=== PATIENT | male | born 1945 | race Caucasian/White ===

== ENCOUNTER 2024-10-12 13:04 | Emergency (ER) | payer MEDICARE, SELFPAY ==
[2024-10-12 13:06] VITALS: BP 151/80
[2024-10-12 13:33] LABS: Hematocrit 40.8 % (39.0-52.0); Hemoglobin 13.7 g/dL (13.0-18.0); Mean Corp Hgb Conc. 33.6 g/dL (33.0-37.0); Mean Corpuscular Volume 89.9 fL (80.0-94.0); Nucleated Red Blood Cells % 0 % (-); Platelet Count 177 10^3/uL (130-400); Red Cell Dist. Width 12.1 % (11.5-14.5)
[2024-10-12 14:02] LABS: ALT (SGPT) 17 U/L (0-50); AST (SGOT) 22 U/L (17-59); Albumin 4.0 g/dl (3.5-5.0); Alkaline Phosphatase 45 U/L (38-126); Blood Urea Nitrogen 22 mg/dl (9-20); Calcium 8.9 mg/dl (8.4-10.2); Carbon Dioxide 23 mmol/L (22-30); Chloride 105 mmol/L (98-107); Glucose 97 mg/dl (70-99); Potassium 4.6 mmol/L (3.5-5.1); Sodium 134 mmol/L (135-145); Total Protein 6.6 g/dl (6.3-8.2); eGFR > 60.00
--- NOTE | 2024-10-12 14:23 | ED.GENMED ---
History of Present Illness
General
Chief Complaint: Generalized Pain
Source: patient and family (daughters)
Exam Limitations: none
Time Seen by Provider: 10/12/24 14:07
Nursing documentation reviewed up to this point in time: agreed with
History of Present Illness
History of Present Illness:
79-year-old male with history as noted including history of DVT on Eliquis who presents to the emergency department with his daughters for evaluation of myalgias. Of note patient had carpal tunnel surgery on his right hand by Dr. Soto on Tuesday.
He says that he has been taking Tylenol 3 for pain control since. He unfortunately since the surgery has developed severe myalgias and arthralgias�he says pains across his entire body. He says that his achiness is severe to the point that he
could not even get out of the chair today which prompted him to finally come to the ER. He has no other specific complaints�he has not had headache, URI symptoms, fever, cough, chest pain, shortness of breath, abdominal pain, nausea, vomiting,
diarrhea. He has not had any urinary symptoms, hematuria. He does note that he is an avid car parker and tends to work outside a lot and has pulled multiple ticks off of him and his daughter is concerned that perhaps symptoms could be from Lyme's
disease.
Review of Systems
Review of Systems
Constitutional: Reports fatigue; Denies fever or chills
EENT: Denies sore throat or runny nose
Respiratory: Denies cough or trouble breathing
Cardiac: Denies chest pain or palpitations
ABD/GI: Denies abdominal pain, nausea, vomiting or diarrhea
: Denies dysuria, frequency, flank pain or bleeding
Musculoskeletal: Reports joint pain and muscle pain
Neurological: Denies dizzy or headache
Phy Exam
Physical Exam
Physical Exam:
General: Awake, alert, oriented x3; no acute distress
Head: Normocephalic, atraumatic
Eyes: Conjunctiva normal, EOMI, pupils equal round and reactive to light bilaterally
Throat: Airway intact, handling secretions
Neck: Trachea midline, supple without meningismus
Lungs: Clear to auscultation bilaterally, no wheezing, rales, rhonchi
Heart: Regular rate and rhythm, no murmurs, gallops, or rubs
Abd: Soft, non distended, nontender
Neuro: No gross deficits
Skin: no rash noted on skin inspection
Extremities: Patient has linear surgical incision on the ventral aspect of the right wrist with sutures in place�incision appears clean, dry, no surrounding erythema or drainage although there is some surrounding postoperative bruising and mild
swelling; he has no joint swelling in the rest of his extremities, no edema in the rest of extremities, good pulses throughout his extremities
Scores
Heart Failure Risk
Heart Failure Risk Score: Not Applicable
Heart Score for Chest Pain Patients
STEMI patient?: Not applicable
Withdrawal Assessment of Alcohol
Withdrawal Assessment Completed?: Not applicable
Course
Orders/Labs/Results
Orders:
Orders
10/12/24 13:18
Complete Blood Count/With Diff Urgent
Comprehensive Metabolic Panel Urgent
Lyme PCR, DNA [S] Urgent
10/12/24 14:22
Electrocardiogram (*1) Urgent
Reason for Study: Fatigue / Weakness
EKG- Treatment ONCE
Urinalysis Reflex To Culture Urgent
10/12/24 14:28
0.9% Sodium Chloride 1000 ml [Nss] 1,000 ml IV BOLUS
10/12/24 14:32
COVID-19 Antigen Urgent
Source: Nasal Swab
CPK [Creatine Phosphokinase] Urgent
CRP [C-Reactive Protein] Urgent
ESR [Erythrocyte Sed Rate] Urgent
Magnesium Urgent
TSH Reflex To Free T4 Urgent
Troponin I Urgent
10/12/24 15:44
Prednisone [Deltasone] 50 mg PO NOW STA
Abnormal Lab Results
10/12/24 10/12/24
13:18 14:32
RBC 4.54 L 10^6/uL
(4.70-6.10)
Absolute Neuts (auto) 8.3 H 10^3/uL
(1.4-6.5)
Absolute Monos (auto) 1.2 H 10^3/uL
(0.1-0.6)
Neutrophils % 76.5 H %
(42.2-75.2)
Lymphocytes % 11.7 L %
(20.5-51.1)
Monocytes % 10.6 H %
(1.7-9.3)
ESR 26 H mm/hour
(0-20)
Sodium 134 L mmol/L
(135-145)
BUN 22 H mg/dl
(9-20)
Total Bilirubin 1.5 H mg/dl
(0.2-1.3)
C-Reactive Protein 58.90 H mg/L
(0.0-10.00)
10/12/24 13:18
10/12/24 13:18
Vital Signs
Initial and Last Documented VS:
Initial Vital Signs
Temp Pulse Resp BP Pulse Ox
36.8 C 79 18 151/80 99
10/12/24 13:06 10/12/24 13:06 10/12/24 13:06 10/12/24 13:06 10/12/24 13:06
Last Documented Vital Signs
Temp Pulse Resp BP Pulse Ox
36.8 C 79 18 151/80 99
10/12/24 13:06 10/12/24 13:06 10/12/24 13:06 10/12/24 13:06 10/12/24 14:26
MDM/Problems Addressed
Differential Diagnosis Includes:
Wide differential diagnosis for myalgias and arthralgias includes but not limited to: Viral syndrome, rhabdomyolysis, anemia, electrolyte derangement, uremia, dehydration, PMR, vasculitis, thyroid dysfunction, dysrhythmia, Lyme's, etc
MDM/Problems Addressed:
79-year-old male presents for evaluation of generalized myalgias and arthralgias for the past few days; he did have recent carpal tunnel surgery but has not really had pain or significant issues aside from some transient tingling the 24 hours after
surgery. Vitals were significant for mild hypertension. Physical exam as above. Surgical site appears clean without signs of acute infection. Somewhat doubt generalized myalgias or arthralgias are directly related to carpal tunnel surgery.
Differential diagnosis is quite wide. Will plan to check labs including a CBC and a CMP, CPK, ESR/CRP, EKG with troponin, thyroid studies, Lyme's test, COVID and flu. Will check urinalysis. Will provide some fluids. Monitor closely reassess
after the above. I did discuss with patient's surgeon and to inform that patient is an ER.
EKG shows sinus rhythm. CBC shows no leukocytosis, no anemia or thrombocytopenia. His chemistry shows no significant electrolyte derangements. His CRP and ESR are elevated�nonspecific especially in the setting of recent surgery. CPK is normal.
Awaiting rest of labs.
Troponin undetectable, thyroid studies unremarkable. COVID and flu swabs negative. At this point no clear emergent etiology to patient's symptoms. Possible that he has a viral illness with myalgias and arthralgias as primary symptom. This could
be autoimmune disease/polymyalgia rheumatica. He did have elevated inflammatory markers. Lyme's is a consideration but he denies history of rash�I would hold on empiric treatment pending Lyme's test. I think it is reasonable to trial some
steroids given his elevated inflammatory markers although certainly they could be elevated related to surgery. No clear indication for hospitalization at this point�I think he is stable for discharge and can follow-up with his primary care
physician as an outpatient. I spoke to the patient and his daughters and they feel comfortable with this plan. Spoke about return precautions and all questions answered.
*Pulse Oximetry
SaO2: 99
Oxygen Mode of Delivery: Room air
Patient hypoxic: no (99%)
*EKG
Interpreted by ED Provider?: Yes
Heart Rate: 78
Rate: normal
Rhythm: sinus
[place]: normal axis
Interval: normal interval
QRS Pattern: normal QRS
Ischemia: no ischemia
*Critical Care Note
Total Time (30-74mins, 75-104mins- exclusive of procedures): Not Applicable
Data Reviewed
Source: patient and records
Patient Management
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
ED Attending Note
-
Portions of this chart may have been created with voice recognition software.� Occasional wrong word or��sound alike� substitutions may have occurred due to the inherent limitations of voice recognition software.
Discharge Plan
Departure
Patient Disposition: Home (Routine Discharge)
Date of Disposition: 10/12/24
Time of Disposition: 15:45
Patient with high blood pressure during this ER visit?: Yes
Discharge Problem:
Myalgia, Arthralgia
Instructions: Muscle, joint, and bone pain - Discharge instructions
Prescriptions:
New
prednisone 10 mg Tablet
See Rx Instructions .ROUTE .COMPLEX Qty: 30 0RF
Rx Instructions:
Take By Mouth:
40 mg daily x3 days, 30 mg daily x3 days,
20 mg daily x3 days, 10 mg daily x3 days.
Referrals:
Logan Mcfarlane PA-C [Family Provider] - Follow up in 5-7 days
Activity Restrictions/Additional Instructions:
Thank you for visiting the Emergency Department at [facility].
1. Please schedule a follow up appointment as directed. Call first thing tomorrow morning to make an appointment.
2. If indicated, please take your medications as instructed and indicated on discharge paperwork.
3. If any of your symptoms do not improve, or persist, or become more severe within 6-12 hours, please return to the emergency department for further care.
4. Please return to the emergency department if you develop a headache, neck pain/stiffness, fever greater than 100.4F, chest pain, shortness of breath, persistent nausea, vomiting, slurred speech, difficulty walking, numbness/tingling, weakness,
signs of infection or any other symptoms that are worrisome to you.
Please call [phone] if you have any questions.
Interventions
Interventions:
*Risk Screen - Suicide Last Done: 10/12/24 13:06
*General Assessment Last Done: 10/12/24 13:06
*Neglect/Abuse Screening Last Done: 10/12/24 13:06
Discharge Date and Time
Print Language: CANADIAN
[2024-10-12] MEDS: NSS 1000 IV (14:51)
[2024-10-12 15:03] LABS: COVID-19 Antigen Negative (Negative)
[2024-10-12 15:12] LABS: Magnesium 2.1 mg/dl (1.6-2.3)
[2024-10-12 15:15] LABS: C-Reactive Protein 58.90 mg/L (0.0-10.00)
[2024-10-12 15:24] LABS: Troponin I < 0.012 ng/ml
[2024-10-12] MEDS: DELTASONE 50 MG PO (15:49)
[2024-10-12 16:32] LABS: Urine Character Clear (Clear)
[2024-10-12 17:01] LABS: Urine Red Blood Cell >100 /HPF (0-2); Urine Squamous Cell >30 /LPF (Few)
== END 2024-10-12 16:42 | disposition home or self-care (01) ==
LOC: EMR 13:04
PROVIDERS: Emergency Medicine; EMERGENCY PHYSICIAN Emergency Medicine; FAMILY PHYSICIAN Physician Assistant Medical
DX: M79.18 Myalgia, other site (principal); M25.59 Pain in other specified joint; R53.83 Other fatigue; Z11.52 Encounter for screening for COVID-19; E78.5 Hyperlipidemia, unspecified; Z85.51 Personal history of malignant neoplasm of bladder; Z86.718 Personal history of other venous thrombosis and embolism; Z79.01 Long term (current) use of anticoagulants; Z98.890 Other specified postprocedural states
CPT/HCPCS: 99284; 96360; 80053; 81003; 81015; 82550; 83735; 84443; 84484; 85025; 85652; 86140; 87476; 87811; 93005